=== PATIENT | male | born 1975 | race Two or more races ===

== ENCOUNTER 2017-10-23 15:29 | Emergency (ER) | payer OTHER ==
[~2017-10-23] VITALS: Ht 177.8 cm; Wt 170.0 kg
[2017-10-23] MEDS ORDERED: ACETAMINOPHEN 325 MG TABLET PO ONE (15:45)
[2017-10-23 16:34] LABS: INFLUENZA TYPE A NEGATIVE FOR TYPE A (NEGATIVE); INFLUENZA TYPE B NEGATIVE FOR TYPE B (NEGATIVE)
[2017-10-23 16:41] VITALS: BP 138/88
== END 2017-10-23 17:13 | disposition home or self-care (01) ==
LOC: EMS 15:32
DX: J06.9 Acute upper respiratory infection, unspecified (principal); R03.0 Elevated blood-pressure reading, without diagnosis of hypertension
CPT/HCPCS: 87804; 99284